=== PATIENT | female | born 1960 | race Caucasian/White ===

== ENCOUNTER 2017-11-08 13:59 | Observation (INO) | payer BC ==
--- NOTE | 2017-11-08 14:29 | EDPHY ---
H & P Stated Complaint: moving furniture ,may have pulled rib l lateral chest wall/l cp - Personal History Current Tetanus Diphtheria and Acellular Pertussis (TDAP): Unsure - Medical/Surgical History Hx Asthma: No Hx Chronic Respiratory Disease: No Hx Diabetes: No Hx Cardiac Disease: No Hx Renal Disease: No Hx Cirrhosis: No Hx Alcoholism: No Hx HIV/AIDS: No Hx Splenectomy or Spleen Trauma: No Other PMH: choly pancreatitis - Social History Smoking Status: Never smoked Time Seen by Provider: 11/08/17 14:12 HPI/ROS: Chief Complaint: Left chest pain/back pain HPI: 57-year-old woman who is visiting from [facility] sitting for her niece. She fluid on Tuesday night. He has had left-sided pain in her lateral chest, below her armpit for the last couple of days. She states she did do some furniture moving but did not do a lot heavy lifting or pushing. Has had some associated shortness of breath. She also has had a chronic cough after bronchitis a few weeks ago. She did have a coughing fit that she may have popped through from that. No substernal chest pain. No dyspnea on exertion. 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 No leg pain or swelling. No family history of DVT. ROS: 10 point Review of Systems is negative except as noted in the HPI. PMH: Hypertension Social History: No smoking, no alcohol, no recreational drug use Family History: non-contributory Physical Exam: Gen: Awake, Alert, No Distress HEENT: Nose: no rhinorrhea Eyes: PERRLA, EOMI Mouth: Moist mucosa Neck: Supple, no JVD Chest: Chest wall tenderness in the left lateral ribs in the mid axillary and posterior axillary line reproducing presenting complaint., lungs clear to auscultation Heart: S1, S2 normal, no murmur Abd: Soft, non-tender, no guarding Back: no CVA tenderness, no midline tenderness Ext: no edema, non-tender Skin: no rash Neuro: CN II-XII intact, Sensation grossly intact, Strength 5/5 in bilateral upper and lower extremities (Fazal Moraes) Constitutional: Initial Vital Signs Temperature (C) 36.7 C 11/08/17 14:05 Heart Rate 82 11/08/17 14:05 Respiratory Rate 18 11/08/17 14:05 Blood Pressure 139/87 H 11/08/17 14:05 O2 Sat (%) 96 11/08/17 14:05 O2 Delivery Mode Room Air Allergies/Adverse Reactions: No Known Allergies Allergy (Unverified 11/08/17 14:03) Home Medications: Medication Instructions Recorded Amox Tr/K Clav (Augmentin) 500 mg PO Q12 11/08/17 [Augmentin 500/125 MG TAB (*)] Dextroamphetamine/Amphetamine 15 mg PO DAILY PRN 11/08/17 [Adderall 30 mg Tablet] Eszopiclone [Lunesta] 3 mg PO HS PRN 11/08/17 Levothyroxine [Synthroid 100 mcg 100 mcg PO DAILY06 11/08/17 (*)] Lisinopril 5 mg PO DAILY 11/08/17 Naproxen Sodium [Aleve 220 MG (*)] 440 mg PO DAILY PRN 11/08/17 Medical Decision Making - Diagnostics EKG Interpretation: ECG time 2:28 p.m., sinus rhythm with a rate of 76, some left atrial abnormality , no acute ST or T-wave changes. (Fazal Moraes) Imaging Results: Imaging Impressions Chest X-Ray 11/08/17 14:23 Impression: 1. Clear lungs. No acute process. 2. Cardiomegaly. No failure or edema. Chest/Thorax CTA 11/08/17 15:17 Impression: 1. Possible low anterior wall myocardial ischemia. 2. No pulmonary emboli. 3. Likely an incidental large left renal cyst. Correlation with ultrasound might be useful since this cyst is incompletely included on this exam. Results called and discussed with KYLAH BARROW, at 11/08/2017 16:15 General information for patients regarding this examination can be found at [email or web address]. If you have questions or comments about this report, please contact me at [phone] (hospital) or [phone] (cell). ED Course/Re-evaluation: 57-year-old with left chest wall pain which is reproducible other she does have a history of some mobility for while driving recently. No calf pain or swelling. She is concerned about possibility of PE. Chest x-ray and D-dimer have been ordered. Patient has been signed out to Dr. Barrow pending these results. (Fazal Moraes) Other Provider: I assumed care of this patient from Dr. Moraes at 3:00 p.m.. At that time the results of the D-dimer were pending. When resulted, the D-dimer was 0.8. She is here with left mid to posterior axillary line pleuritic chest pain that has been present since last night. She reports a recent plane trip and a recent relatively long driving trip. She has also been moving some furniture and thinks that she might have pulled a muscle. The elevated D-dimer CT angiogram of the chest was performed. This was negative for PE. However, the radiologist noted that there is some possible evidence of low anterior wall myocardial ischemia. She has a family history of early coronary artery disease with 3 first-degree relatives dying of heart attacks in their 50s. She has a personal history of hypertension. She is followed by a soils technician in [facility] and had a treadmill stress test performed sometime within the last 2 years. I did a repeat EKG and was also able to obtain an EKG from her soils technician in [place]. She has an incomplete right bundle branch block that has been seen on previous EKGs. No evidence of acute ischemia. Her troponin is normal. However, she continues to complain of this pain and at one point told me she had a feeling of chest pressure "as if an elephant was sitting on her chest". She was given sublingual nitroglycerin with some relief of this discomfort. However, she continued with chest discomfort. She is being admitted to the hospitalist service for overnight observation and serial troponins, other cardiac evaluation as needed. Her soils technician is Dr. Juma Hussein in [place] [phone]. (Kylah Barrow) - Data Points Laboratory Results: Laboratory Results 11/08/17 14:35 11/08/17 14:35 11/08/17 11/08/17 11/08/17 16:29 14:35 14:35 WBC RBC Hgb Hct MCV MCH MCHC RDW Plt Count MPV Neut % (Auto) Lymph % (Auto) Andrew % (Auto) Eos % (Auto) Baso % (Auto) Nucleat RBC Rel Count Absolute Neuts (auto) Absolute Lymphs (auto) Absolute Monos (auto) Absolute Eos (auto) Absolute Basos (auto) Absolute Nucleated RBC Immature Gran % Immature Gran # D-Dimer 0.80 ug/mLFEU H ug/mLFEU (0.00-0.50) Sodium 139 mEq/L mEq/L (135-145) Potassium 4.7 mEq/L mEq/L (3.3-5.0) Chloride 104 mEq/L mEq/L (97-110) Carbon Dioxide 28 mEq/l mEq/l (22-31) Anion Gap 7 mEq/L L mEq/L (8-16) BUN 12 mg/dL mg/dL (7-23) Creatinine 0.7 mg/dL mg/dL (0.6-1.0) Estimated GFR > 60 Glucose 104 mg/dL H mg/dL (70-100) Calcium 9.5 mg/dL mg/dL (8.5-10.4) POC Troponin I 0.00 ng/mL ng/mL (0.00-0.08) 11/08/17 14:35 WBC 7.01 10^3/uL 10^3/uL (3.80-9.50) RBC 4.57 10^6/uL 10^6/uL (4.18-5.33) Hgb 13.2 g/dL g/dL (12.6-16.3) Hct 39.4 % % (38.0-47.0) MCV 86.2 fL fL (81.5-99.8) MCH 28.9 pg pg (27.9-34.1) MCHC 33.5 g/dL g/dL (32.4-36.7) RDW 12.4 % % (11.5-15.2) Plt Count 258 10^3/uL 10^3/uL (150-400) MPV 10.8 fL fL (8.7-11.7) Neut % (Auto) 55.8 % % (39.3-74.2) Lymph % (Auto) 35.5 % % (15.0-45.0) Andrew % (Auto) 5.7 % % (4.5-13.0) Eos % (Auto) 2.3 % % (0.6-7.6) Baso % (Auto) 0.4 % % (0.3-1.7) Nucleat RBC Rel Count 0.0 % % (0.0-0.2) Absolute Neuts (auto) 3.91 10^3/uL 10^3/uL (1.70-6.50) Absolute Lymphs (auto) 2.49 10^3/uL 10^3/uL (1.00-3.00) Absolute Monos (auto) 0.40 10^3/uL 10^3/uL (0.30-0.80) Absolute Eos (auto) 0.16 10^3/uL 10^3/uL (0.03-0.40) Absolute Basos (auto) 0.03 10^3/uL 10^3/uL (0.02-0.10) Absolute Nucleated RBC 0.00 10^3/uL 10^3/uL (0-0.01) Immature Gran % 0.3 % % (0.0-1.1) Immature Gran # 0.02 10^3/uL 10^3/uL (0.00-0.10) D-Dimer Sodium Potassium Chloride Carbon Dioxide Anion Gap BUN Creatinine Estimated GFR Glucose Calcium POC Troponin I Medications Given: Cyclobenzaprine HCl (Flexeril) 5 mg PO BID PRN PRN Reason: Spasms Stop: 05/07/18 20:59 Last Admin: 11/08/17 22:17 Dose: 5 mg Nitroglycerin (Nitrostat) 0.4 mg SL Q5M PRN PRN Reason: Chest Pain Last Admin: 11/08/17 16:47 Dose: 0.4 mg Point of Care Test Results: Chemistry 11/08/17 16:29 POC Troponin I 0.00 ng/mL ng/mL (0.00-0.08) Departure - Departure Disposition: [facility] Inpatient Acute Condition: Fair
--- NOTE | 2017-11-08 14:30 | CPEKG ---
Heart Rate: 76 RR Interval: 789 P-R Interval: 176 QRSD Interval: 108 QT Interval: 432 QTC Interval: 486 P [place]: 58 QRS [place]: 91 T Wave [place]: 10 EKG Severity - ABNORMAL ECG - EKG Impression: SINUS RHYTHM EKG Impression: LEFT ATRIAL ABNORMALITY EKG Impression: INCOMPLETE RIGHT BUNDLE BRANCH BLOCK EKG Impression: BORDERLINE PROLONGED QT INTERVAL Electronically Signed By: Fazal Moraes 08-Nov-2017 14:34:53
[2017-11-08 14:50] LABS: PLATELET COUNT 258 10^3/uL (150-400)
[2017-11-08] MEDS ORDERED: IOPAMIDOL (ISOVUE 370) 100 ML BTL IV ONE (15:28)
--- NOTE | 2017-11-08 16:36 | CPEKG ---
Heart Rate: 79 RR Interval: 759 P-R Interval: 188 QRSD Interval: 108 QT Interval: 440 QTC Interval: 505 P [place]: 63 QRS [place]: 90 T Wave [place]: 3 EKG Severity - ABNORMAL ECG - EKG Impression: SINUS RHYTHM EKG Impression: LEFT ATRIAL ABNORMALITY EKG Impression: INCOMPLETE RIGHT BUNDLE BRANCH BLOCK EKG Impression: BORDERLINE PROLONGED QT INTERVAL Electronically Signed By: Albaro Marvin 08-Nov-2017 20:05:11
[2017-11-08] MEDS: NITROGLYCERIN 0.4 MG BTL SL PRN ×2 (16:42→16:47)
[2017-11-08] MEDS ORDERED: ONDANSETRON DISINTEGRATING 4 MG TAB PO PRN (17:46)
[2017-11-08] MEDS ORDERED: ONDANSETRON 4 MG/2 ML VIAL IVP PRN (17:46)
[2017-11-08] MEDS ORDERED: ACETAMINOPHEN 325 MG TAB PO PRN (17:46)
--- NOTE | 2017-11-08 20:08 | GHP ---
[f rep st] HISTORY AND PHYSICAL DATE OF ADMISSION: 11/08/2017 CHIEF COMPLAINT: Left chest pressure. HISTORY OF PRESENT ILLNESS: This is a 57-year-old female with history of lower back pain. 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 She has been moving furniture all week. Last night she was watching TV and developed left-sided chest pressure that wrapped around to her flank and up to her shoulder blade. This pain subsided enough that she could go to sleep but never went away. She noticed the pain was worse with deep inspiration. The pain progressed today so she presented to the ER. Here she noted radiation to her jaw with mild shortness of breath. At home, she does have 10-12 stairs and does not get chest pain or shortness of breath. Three weeks ago she did note her legs to be heavy when walking up them. She has had a cough for several weeks and has been on amoxicillin per her ENT doc. Has a postnasal drip. She had some relief with sub nitroglycerin. Per patient had a normal exercise treadmill test 2 years ago. REVIEW OF SYSTEMS: I completed a 10-point review of systems, negative except as noted in HPI. PAST MEDICAL HISTORY: Lower back pain, pancreatitis secondary to a cholecystectomy, hypertension. PAST SURGICAL HISTORY: , cholecystectomy, sinus surgery. FAMILY HISTORY: Paternal grandmother with 3 MIs in her 40s. Two maternal aunts with MIs at age 50s. SOCIAL HISTORY: Lives in [place]. She is in the middle of a divorce so has increased stressors. Denies alcohol, tobacco, or illicits. Smoked cigarettes for 5 years as a teenager. PHYSICAL EXAMINATION: VITAL SIGNS: Temperature 36.7, blood pressure 155/101, now 128/79. GENERAL: Sitting up in bed, mildly anxious. HEENT: PERRLA. Moist mucous membranes CV: Regular rate and rhythm. No lower extremity edema. LUNGS: Clear. No wheezes or crackles. Has tenderness over her left chest as well as her scapula, but she says it is different from the pressure she had earlier. GI: Soft, nontender, nondistended. Positive bowel sounds. : No Gunn. MUSCULOSKELETAL: 5/5 upper lower extremity strength. NEURO: 2 through 12 intact. PSYCH: Alert and oriented x3. LABORATORY DATA: WBC 7, hemoglobin 13, hematocrit 39, platelets 258. D-dimer is 0.8. Sodium 139, potassium 4.7, chloride 104, anion gap 7, creatinine 0.7, glucose 104. Troponin 0.00. Chest x-ray is personally reviewed by me. Mild cardiomegaly. No effusion or edema. EKG is personally reviewed by me. Incomplete right bundle branch, CTA, no pulmonary emboli. Possible low anterior wall OH, which has been seen by Dr. Lomeli in the ER who obtained an old and it also had an incomplete right bundle branch block. ASSESSMENT AND PLAN: 1. Chest pressure: Differential acute coronary syndrome, pulmonary embolus, musculoskeletal, gastroesophageal reflux disease. Was hypertensive to 155/100 at admission. Has TTP on exam and has been moving furniture, but the pain is different from what she presented with. Has concerning symptoms given the pressure radiated to jaw, shortness of breath and some relief with nitroglycerin. Her initial troponin was negative and incomplete RBBB. Will repeat. Monitor on telemetry. She reports normal treadmill test 2 years ago. Given the constellation of symptoms and family history, would be reasonable to check a stress test. The patient is very hesitant and would like to see how she does overnight and talk to the hospitalist in the morning about further testing. P.r.n. nitroglycerin and morphine. 2. Hypertension:may be situational. Normalized after nitroglycerin. We will monitor overnight. 3. Diet, regular. 4. Deep vein thrombosis prophylaxis, Lovenox. 5. Renal cyst: incidental finding. Will need close repeat imaging Disposition. The patient warrants observation admission for chest pain and possible cardiac stress test in the morning. /[id number]/MODL MTDD
[2017-11-08] MEDS: CYCLOBENZAPRINE 10 MG TAB PO PRN (22:17)
[2017-11-08] MEDS ORDERED: MELATONIN 3 MG TAB PO PRN (23:01)
[2017-11-09] MEDS ORDERED: ENOXAPARIN 40 MG/0.4 ML SYR SC SCH (09:00)
[2017-11-09 09:25] VITALS: BP 103/83
[2017-11-09] MEDS: CYCLOBENZAPRINE 10 MG TAB PO PRN (09:41)
--- NOTE | 2017-11-09 12:08 | GCON ---
[f rep st] CONSULTATION CARDIOLOGY CONSULTATION DATE OF CONSULTATION: 11/09/2017 INDICATION FOR CONSULT: Left-sided chest discomfort. HISTORY OF PRESENT ILLNESS: Ms. Thomas is a pleasant 57-year-old female with a past medical of hypot hyroidism, hypertension, who was in her usual state of health until Tuesday when she began t o develop left-sided flank and chest discomfort that wrapped around to her back and shoulder blade ar ea. She describes the initial onset of pain as an 8/10, worse with deep inspiration and coughing. N o alleviating factors. She states her symptoms waxed and waned, but never left completely. She stat es her pain progressed again to 8/10 on Tuesday afternoon, prompting her to seek medical attention at [facility]. She denies any associated shortness of breath, dyspnea on exertion, nausea, vomiting, or diaphoresis. She denies any complaints of exertional intolerance or fatigue. Ms. Thomas is visiting [place]. 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 She had been movi ng furniture in her niece's home on the days prior to the onset of her chest and shoulder discomfort. Upon arrival to [facility], she underwent ECG demonstrating normal sinus rhythm with incomplete right bundle branch block and QT prolongation by Bazett formula of 500 msec. She was found to have an elevated D-dimer and subsequently underwent a CTA of the chest demonstrating no evidence of pulmonary embolism. Thoracic aorta was with normal size with no evidence of dissecti on. There is no evidence of pericardial effusion. Initial lab work has demonstrated negative troponin x2. Currently, at the time of my exam, she is resting comfortably. She has been given cyclobenzaprine wh ich she feels has been helpful for her discomfort. PAST MEDICAL HISTORY: Notable for newly diagnosed hypertension, currently on lisinopril 5 mg daily. Hypothyroidism and a history of pancreatitis secondary to gallstones, status post cholecystectomy. PAST SURGICAL HISTORY: Includes cholecystectomy, and sinus surgery. SOCIAL HISTORY: She is currently going through a divorce. She lives in [place]. She smoked whe n she was in high school. She rarely drinks alcohol. No illicit drug use. FAMILY HISTORY: No known history of coronary disease in either of her parents, or her brother or sis ter. Her paternal grandmother had a myocardial infarction in her 40s. Her maternal aunts had myocar dial infarctions in their 50s. PHYSICAL EXAMINATION: VITAL SIGNS: Blood pressure of 103/83, heart rate of 83, respiratory rate of 15, oxygen saturation 93% on room air. GENERAL: She is awake, alert, oriented, appropriate, in no a pparent distress. NECK: There is no evidence of JVP or carotid bruits. LUNGS: Clear to auscultati on bilaterally. CARDIAC: S1, S2. Regular rate and rhythm. No murmurs, rubs, or gallops. ABDOMEN: Soft, nontender, nondistended. There is no pulsatile mass or abdominal bruit. EXTREMITIES: There is no evidence of cyanosis, clubbing or edema. Distal pulses are intact. I am able to reproduce her discomfort with palpation of her left scapular region and left flank. DATA: White blood cell count of 7, hemoglobin of 13.2, hematocrit 39.4, platelet count 258. Sodium 139, potassium 4.7, chloride 104, bicarb 28, BUN 12, creatinine 0.7. Troponin less than 0.012 x2. T otal cholesterol 150, triglycerides 99, HDL 71, LDL 59. IMPRESSION: 1. Atypical chest discomfort. 2. QT prolongation. In summary, Ms. Thomas is a pleasant 57-year-old female with atypical chest symptoms. The pain is re producible to palpation. I think this most likely represents musculoskeletal discomfort in the setti ng of recent moving of furniture coupled with the fact that symptoms are improved with Flexeril and r eproducible to palpation. I do not think she requires further cardiac risk stratification at this ti me. PLAN: 1. I recommend she continue current medications. 2. Follow up as an outpatient with Cardiology if needed or if symptoms persist. /[id number]/MODL
--- NOTE | 2017-11-09 12:57 | ASMTLACE ---
LACE Length of stay for Answers: Less than 1 day current admission Comorbidities - select Answers: Other Notes: Hypothyroind, HTN all that apply # of Emergency department Answers: 1-2 visits in the last 6 months Score: 2 Date Signed: 11/09/2017 12:56 PM Electronically Signed By:Denisha Petersen RN
--- NOTE | 2017-11-09 12:59 | ASMTCMCOM ---
CM Note CM Note Notes: Chart reviewed for discharge planning purposes. %^ year old female admitted via ED r/o ACS. She has been medically cleared for discharge to home. No needs identified. CM available should needs arise. Plan : Home independently. Date Signed: 11/09/2017 12:59 PM Electronically Signed By:Denisha Petersen RN
--- NOTE | 2017-11-09 14:49 | GDS ---
[f rep st] DISCHARGE SUMMARY DISCHARGE DIAGNOSES: 1. Chest pain, suspect musculoskeletal. 2. Long QT. HISTORY: Magalys is a 57-year-old female visiting from [place]. She had prolonged travel, and p ulmonary embolus was ruled out. CT angiogram suggested possible ischemia of the myocardium, so cardi ology was consulted. They felt her pain was clearly musculoskeletal due to recent lifting of heavy f urniture. They reviewed the CT scan and did not think it changed her clinical impression. They clara red her for discharge and traveled back to [place]. Incidentally noted on her EKG was a long QT, for which it was recommended she follow up with her usual physicians in [place]. DISCHARGE MEDICATIONS: Please see computer record for full detailed list and new medications. Flexe ril 5 mg p.o. b.i.d. as needed. ADDITIONAL DISCHARGE INSTRUCTIONS: Long QT interval. Please review your EKG with your aerotriangulation specialist at home. Greater than 30 minutes' time was spent arranging this discharge. Patient was seen and examined by raquel lizarraga on the day of discharge. /[id number]/MODL
[2017-11-09] MEDS ORDERED: AMOX/CLAVULANATE 500/125 MG TAB PO SCH (21:00)
[2017-11-10] MEDS ORDERED: LEVOTHYROXINE 100 MCG TAB PO SCH (06:00)
[2017-11-10] MEDS ORDERED: LISINOPRIL 5 MG TAB PO SCH (09:00)
== END 2017-11-09 14:15 | disposition home or self-care (01) ==
LOC: F2W 19:25
PROVIDERS: ADMIT Internal Medicine; ATTEND Internal Medicine
DX: R07.9 Chest pain, unspecified (principal); R94.31 Abnormal electrocardiogram [ECG] [EKG]; R93.422 Abnormal radiologic findings on diagnostic imaging of left kidney; I51.7 Cardiomegaly; I10 Essential (primary) hypertension; E03.9 Hypothyroidism, unspecified; Z82.49 Family history of ischemic heart disease and other diseases of the circulatory system
CPT/HCPCS: 71046; 71275; 93005; G0378; 84484-PO; J1650; Q9967